=== PATIENT | female | born 1975 | race Caucasian/White ===

== ENCOUNTER 2020-10-11 06:41 | Observation (INO) ==
--- NOTE | 2020-08-20 14:38 | PAT Medication Instructions ---
Medication Instructions Date of Service August 20, 2020 Home Medications acetaminophen [Tylenol Extra Strength] 1,500 mg PO HS cholecalciferol (vitamin D3) [Vitamin D3] 125 mcg PO QAM coQ10 (ubiquinol) 200 mg PO QAM cyanocobalamin (vitamin B-12) 1,000 mcg PO QAM diclofenac sodium 75 mg PO BID ibuprofen [Motrin] 200 mg PO BID metformin 500 mg PO BID metoprolol succinate 25 mg PO QAM montelukast [Singulair] 10 mg PO QAM tiotropium-olodaterol [Stiolto Respimat] 2 puff INHALATION QAM ASK your surgeon for instructions diclofenac sodium 75 mg PO BID ibuprofen [Motrin] 200 mg PO BID STOP taking 2 weeks before surgery (or as soon as possible if surgery is within 2 weeks) coQ10 (ubiquinol) 200 mg PO QAM DO NOT take the morning of surgery cholecalciferol (vitamin D3) [Vitamin D3] 125 mcg PO QAM cyanocobalamin (vitamin B-12) 1,000 mcg PO QAM metformin 500 mg PO BID montelukast [Singulair] 10 mg PO QAM Take morning of surgery With a small sip of water, OTHERWISE NOTHING TO EAT OR DRINK AFTER MIDNIGHT: metoprolol succinate 25 mg PO QAM Take evening before surgery acetaminophen [Tylenol Extra Strength] 1,500 mg PO HS metformin 500 mg PO BID Other Notes If you have any questions please call us at [phone] or [phone] or [phone] or [phone]
--- NOTE | 2020-08-22 14:08 | Anesthesiology Consultation ---
Date of Service August 22, 2020 Assessment & Plan (1) Encounter for pre-operative examination: - COVID screening: Per assessment on 08/22: Travel screen negative, no known COVID-19 positive contacts or current COVID-19 related symptoms. Surgeon arranging preop COVID testing. Awaiting results. - Check test AM DOS Chart Review Chart Review: Acceptable Risk for Surgery and Patient seen in Pre Admission Testing Teaching & Discussion Pre-Anesthesia Teaching/Discussion Notes: Instructed NPO after midnight before surgery,except medications with 15 cc of water. Medication instructions provided according to the PAT guidelines. History Surgery Operation Date: 09/20/20 08:45 Proposed Procedures p Right Total Hip Arthroplasty, Possible Bone Grafting, Autrograft [place] Femoral Head or Acetabulum - Rudy Friedman DO Height/Weight Height: 5 ft 8 in Weight: 95.3 kg Allergies Allergy/AdvReac Type Severity Reaction Status Date / Time No Known Allergies Allergy Verified 08/20/20 11:46 Medications Home Medications Medication Instructions Recorded Confirmed Last Taken acetaminophen 500 mg capsule 1,500 mg PO HS 08/20/20 08/20/20 Unknown cholecalciferol (vitamin D3) 125 125 mcg PO QAM 08/20/20 08/20/20 Unknown mcg (5,000 unit) tablet (Vitamin D3) coQ10 (ubiquinol) 200 mg capsule 200 mg PO QAM 08/20/20 08/20/20 Unknown cyanocobalamin (vitamin B-12) 1,000 mcg PO QAM 08/20/20 08/20/20 Unknown 1,000 mcg capsule diclofenac sodium 75 mg 75 mg PO BID 08/20/20 08/20/20 Unknown tablet,delayed release ibuprofen 100 mg tablet 200 mg PO BID 08/20/20 08/20/20 Unknown metformin 500 mg tablet 500 mg PO BID 08/20/20 08/20/20 Unknown metoprolol succinate 25 mg 25 mg PO QAM 08/20/20 08/20/20 Unknown tablet,extended release 24 hr montelukast 10 mg tablet 10 mg PO QAM 08/20/20 08/20/20 Unknown (Singulair) tiotropium 2.5 mcg-olodaterol 2.5 2 puff INHALATION QAM 08/20/20 08/20/20 Unknown mcg/actuation mist for inhalation (Stiolto Respimat) Past Medical History Medical History Arthritis Hips History of tachycardia Remote palpitations, controlled since starting beta gayla Obesity Per pt, no diabetes or elevated glucose readings in the past > states prescribed Metformin by PCP for weight loss Sleep apnea CPAP (compliant) 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 per pt Exercise / Class Metabolic Activity II 4-5 Yardwork/Stairs/Walk up hill Past Family History Family History Father Family history of diabetes mellitus Mother Family history of diabetes mellitus Past Surgical History Surgical History Goiter s/p needle biopsy History of arthroscopy Right knee ACL History of bilateral breast reduction surgery History of section x2 Past Anesthesia History No Hx of Anesthesia Complications and No Family Hx of Anesthesia Complications History of PONV No Hx of PONV and Hx of Motion Sickness (occasional) Social History Smoking Status: Former smoker Do You Dip or Chew Tobacco: No Smoking End Date: Quit 18 years ago Hx Alcohol Use: Yes Alcohol type: other alcohol intake frequency: a few times a month Hx Substance Use: No Review of Systems Patient denies chest pain, shortness of breath, dyspnea on exertion, fever, chills, cough, wheezing, palpitations. Physical Exam Vital Signs VITALS BP 103/69 P 93 TEMP 98.9 SP02 97%RA RESP 16 PHYSICAL Full cervical extension range of motion. Full TMJ range of motion. TMD 3 finger breaths Mallampati Score 2 Dentition: left lower side missing Lungs: clear throughout to auscultation Cardiac: regular rate and rhythm, no murmurs noted Spine: normal Carotid arteries: negative bruit Extremities: no edema Lab Results Anesthesia Preop Results Results Anesthesia Widget: WBC 6.81 K/uL (4.8-10.8) 08/22/20 Hgb 12.5 g/dL (12.0-16.0) 08/22/20 Hct 36.6 % (37-47) L 08/22/20 Plt 252 K/uL (130-400) 08/22/20 Na 141 mmol/L (136-145) 08/22/20 K 3.8 mmol/L (3.5-5.1) 08/22/20 Cl 109 mmol/L (98-107) H 08/22/20 CO2 29 mmol/L (21-32) 08/22/20 BUN 12 mg/dl (7-18) 08/22/20 Creat 0.67 mg/dl (0.6-1.2) 08/22/20 Glucose Level 94 mg/dl (70-99) 08/22/20 PT 10.7 Seconds (9.0-12.0) 08/22/20 PTT 23.6 Seconds (21.0-31.0) 08/22/20 INR 1.1 (0.9-1.1) 08/22/20 HA1c 5.4 % (4.5-5.6) 08/22/20 Urine Color Yellow 08/22/20 Urine Appearance Cloudy (Clear) A 08/22/20 Urine pH 6.0 (4.5-7.5) 08/22/20 Urine Specific [place] 1.014 (1.000-1.030) 08/22/20 Urine Protein Negative (Negative) 08/22/20 Urine Glucose (UA) Negative (Negative) 08/22/20 Urine Ketones Negative (Negative) 08/22/20 Urine Blood 2+ (Negative) H 08/22/20 Urine Nitrite Negative (Negative) 08/22/20 Urine Bilirubin Negative (Negative) 08/22/20 Urine Urobilinogen Negative (Negative) 08/22/20 Urine Leukocyte Esterase 1+ (Negative) H 08/22/20 Urine WBC (Auto) >30 /hpf (0-5) H 08/22/20 Urine RBC (Auto) 5-10 /hpf (0-4) H 08/22/20 Urine Hyaline Casts (Auto) 1-5 /lpf (0-5) 08/22/20 Urine Epithelial Cells (Auto) >30 /lpf (0-5) H 08/22/20 Urine Bacteria (Auto) 1+ (Negative) H 08/22/20 Blood Type B Positive 08/22/20 Antibody Screen NEGATIVE 08/22/20 Lab Comments: Surgeon's office made aware of abnormal UA. Testing Electrocardiogram Date: 08/22/20 Findings: + NSR @ (90) Chest X-Ray Date: 08/22/20 Findings: + NAD
--- NOTE | 2020-10-10 15:27 | History & Physical Report ---
Date of Service October 10, 2020 Assessment & Plan (1) Osteoarthritis of right hip: Plan: Schedule a right hip total hip arthroplasty, possible autografting acetabular bone cyst, possible femoral head autograft harvest for 10.11.20. All potential risks, benefits, complications, alternatives, and rehab have been discussed with the patient and she wishes to proceed. ASA 81 mg BID x 4 wks post op for DVT prophylaxis. Home health set up for outpatient total hip arthroplasty. History of Present Illness Chief Complaint: right hip pain Primary Care Provider: Luci Colmenares This is a patient with chronic right hip pain that was treated conservatively for hip DJD. 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 She is now being set up for a right GUZMAN. Allergies Allergy/AdvReac Type Severity Reaction Status Date / Time No Known Allergies Allergy Verified 08/20/20 11:46 Home Medications Medication Instructions Recorded Confirmed Type acetaminophen 500 mg capsule 1,500 mg PO HS 08/20/20 08/20/20 History cholecalciferol (vitamin D3) 125 125 mcg PO QAM 08/20/20 08/20/20 History mcg (5,000 unit) tablet (Vitamin D3) coQ10 (ubiquinol) 200 mg capsule 200 mg PO QAM 08/20/20 08/20/20 History cyanocobalamin (vitamin B-12) 1,000 mcg PO QAM 08/20/20 08/20/20 History 1,000 mcg capsule diclofenac sodium 75 mg 75 mg PO BID 08/20/20 08/20/20 History tablet,delayed release ibuprofen 100 mg tablet 200 mg PO BID 08/20/20 08/20/20 History metformin 500 mg tablet 500 mg PO BID 08/20/20 08/20/20 History metoprolol succinate 25 mg 25 mg PO QAM 08/20/20 08/20/20 History tablet,extended release 24 hr montelukast 10 mg tablet 10 mg PO QAM 08/20/20 08/20/20 History (Singulair) tiotropium 2.5 mcg-olodaterol 2.5 2 puff INHALATION QAM 08/20/20 08/20/20 History mcg/actuation mist for inhalation (Stiolto Respimat) Past Med/Surg History Medical History Arthritis Hips History of tachycardia Remote palpitations, controlled since starting beta gayla Obesity Per pt, no diabetes or elevated glucose readings in the past > states prescribed Metformin by PCP for weight loss Sleep apnea CPAP (compliant) 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 per pt Surgical History Goiter s/p needle biopsy History of arthroscopy Right knee ACL History of bilateral breast reduction surgery History of section x2 Family History Father Family history of diabetes mellitus Mother Family history of diabetes mellitus Social History Smoking Status: Former smoker Second Hand Exposure: Yes (SPOUSE SMOKES OUTSIDE); Hx Alcohol Use: Yes Alcohol type: other Hx Substance Use: No Preferred Language: Iranian Communication Ability: Effective Grounds Maintenance Manager Required: No Beliefs That Will Affect Care: None Current Living Situation: Spouse and Family Feels Safe at Home: Yes Assistive Devices: Glasses Physical Exam Constitutional: well developed and well nourished; no acute distress ENMT: external ear and nose normal, oropharynx normal Neck: trachea midline Respiratory: normal respiratory effort, lungs clear to auscultation Cardiovascular: Rate/Rhythm: regular rate and regular rhythm Gastrointestinal (Abdomen): normal bowel sounds, soft, nontender, no hepatosplenomegaly Musculoskeletal: Hip: + limited ROM of hip (right), + joint line tenderness (right groin), + KENYA test positive (right) and + FADIR test positive (right); no skin erythema and no ecchymosis Skin: no rashes, warm and dry Neurologic: normal touch/pain/proprioception Psychiatric: A+Ox3, euthymic affect Speech: normal rate/rhythm/volume of speech Lymphatic: no cervical or axillary lymphadenopathy
[~2020-10-11 06:41] MED LIST: ACETAMINOPHEN 500 MG TAB PO SCH; CeleBREX 200 MG CAP PO SCH; FAMOTIDINE 20 MG TAB PO SCH; GABAPENTIN 900 MG DOSE PO SCH; LR 500ML BOLUS, THEN 15ML/HR IV SCH; METOCLOPRAMIDE HCL 10 MG TABLET PO SCH; ROPIVACAINE 0.5% HCL/PF 150 MG, BUPIVACAINE 0.75% MPF 20 ML, EPINEPHrine 30MG/30ML (OR ... INFIL SCH; ROPIVACAINE 0.5% HCL/PF 150 MG, BUPIVACAINE 0.75% MPF 20 ML, EPINEPHrine 30MG/30ML (OR ... INSTIL SCH; TRANEXAMIC ACID 1,000 MG **IV Intra-op IV SCH; TRANEXAMIC ACID 1,000 MG **IV Pre-op IV SCH; ceFAZolin 2000MG 2,000 MG/15 ML SYR IV SCH; dexAMETHasone 4 MG TAB PO SCH
[2020-10-11] MEDS ORDERED: ORTHO JOINT ANESTHETIC ONE (07:06)
[2020-10-11] MEDS ORDERED: BUPIVACAINE 0.5 % 5 MG/1 ML PF 10ML VIAL ONE (07:18)
[2020-10-11] MEDS ORDERED: GLYCOPYRROLATE 0.2 MG/ML VIAL ONE (07:26)
[2020-10-11] MEDS ORDERED: fentaNYL citrate 100 MCG/2 ML VIAL ONE (07:27)
[2020-10-11] MEDS ORDERED: KETAMINE 50 MG/5 ML SYRINGE ONE (07:27)
[2020-10-11] MEDS ORDERED: MIDAZOLAM HCL 1 MG/ML 2ML VIAL ONE ×2 (07:27)
--- NOTE | 2020-10-11 07:27 | History & Physical Bridge Note ---
Date of Service October 11, 2020 History & Physical Bridge Note I have examined the patient, reviewed the History & Physical and in the interval since the performance of the History & Physical I have noted the following changes of clinical significance: no changes noted
[2020-10-11] MEDS ORDERED: MEPIVACAINE HCL 1.5% 30 ML VIAL ONE (08:40)
[2020-10-11] MEDS ORDERED: LIDOCAINE 2%/EPINEPHRINE 1:200,000 20 ML SDV ONE (08:41)
[2020-10-11] MEDS ORDERED: ePHEDrine sulfate 50 MG/ML SYR ONE (10:33)
[2020-10-11] MEDS ORDERED: KETOROLAC 30 MG/ML VIAL ONE (10:33)
[2020-10-11] MEDS ORDERED: ONDANSETRON INJ 2 MG/ML 2 ML VIAL ONE (10:33)
[2020-10-11] MEDS ORDERED: LIDOCAINE 2% 2 ML VIAL/AMP(20MG/ML) INFIL ONE (10:33)
[2020-10-11] MEDS ORDERED: PHENYLEPHRINE 100MCG/ML 5ML SYR ONE (10:33)
[2020-10-11] MEDS ORDERED: PROPOFOL IV EMULSION 10 MG/ML 20 ML VIAL IV ONE ×3 (10:33→12:12)
[2020-10-11] MEDS ORDERED: PHENYLEPHRINE HCL 10 MG/ML VIAL ONE (10:33)
[2020-10-11] MEDS ORDERED: METOPROLOL TARTRATE 1 MG/ML VIAL IV ONE (11:07)
--- NOTE | 2020-10-11 12:43 | Post Operative Brief Note ---
Immediate Post Op Note v1 Date of Surgery October 11, 2020 Pre & Post Diagnosis Operation Date: 09/20/20 09:05 <No data on this case meets the specified criteria> Operation Date: 10/11/20 09:15 Pre-Op Diagnosis: Right Hip Osteoarthritis, avascular necrosis femoral head, hip dysplasia, right hip pain Post-Op Diagnosis: Right Hip Osteoarthritis, avascular necrosis femoral head, hip dysplasia, right hip pain I identified the patient and participated in the time-out.: Yes Procedure Operation Date: 09/20/20 09:05 <No data on this case meets the specified criteria> Operation Date: 10/11/20 09:15 Actual Procedures p Right press-fit [place] Total Hip Arthroplasty(Right) - Rudy Friedman DO Surgeon Rudy Friedman DO Product Scientist Jason Johnson PA-C and Luca Vazquez PA-C Estimated Blood Loss 100 Findings Consistent with Post-Op Diagnosis Specimens Bone and tissue right hip Drains Hemovac Drain Anesthesia Type Spinal MAC Complications none Disposition Accompanied Patient To Recovery: No Overlapping Procedure I was present for: the critical portions of procedure. I was immediately available: during the entire case.
--- NOTE | 2020-10-11 13:21 | Anesthesia Procedure Note ---
Date of Service October 11, 2020 Anesthesia Post Epidural Note Vital Signs Vital Signs: Temp Pulse Resp BP Pulse Ox 36.8 C 113 H 22 95/58 L 97 10/11/20 12:45 10/11/20 13:15 10/11/20 13:15 10/11/20 13:15 10/11/20 13:15 Pain Intensity Right Hip: Pain Intensity: 10 Notes Mental Status: alert / awake / arousable Nausea / Vomiting: adequately controlled Pain: adequately controlled Airway Patency, RR, SpO2: stable & adequate BP & HR: stable & adequate Hydration State: stable & adequate Neuraxial Anesthesia: was administered and sensory block is resolving Anesthetic Complications: no major complications apparent Epidural: Removed without complications and With tip intact
--- NOTE | 2020-10-11 13:22 | Anesthesiology Progress Note ---
Date of Service October 11, 2020 Anesthesia Post Procedure Vital Signs Vital Signs: Temp Pulse Pulse Resp BP BP Pulse Ox 10/11/20 13:15 113 H 22 95/58 L 97 10/11/20 13:05 114 H 18 99/64 L 99 10/11/20 12:55 118 H 13 98/60 L 98 10/11/20 12:45 36.8 C 122 H 13 102/72 96 10/11/20 07:33 36.8 C 91 H 18 127/72 99 Pain Intensity Right Hip: Pain Intensity: 10 Transfer of Care Handoff Completed per policy Notes Mental Status: alert / awake / arousable Patient Amnestic to Procedure: Yes Nausea / Vomiting: adequately controlled Pain: adequately controlled Airway Patency, RR, SpO2: stable & adequate BP & HR: stable & adequate Hydration State: stable & adequate Neuraxial Anesthesia: was administered and sensory block is resolving Anesthetic Complications: no major complications apparent
[2020-10-11] MEDS ORDERED: oxyCODONE HCL IR 5 MG TAB (IMMEDIATE RELEASE) PO STA (13:49)
--- NOTE | 2020-10-11 14:00 | XRay Report ---
XR hip RT min 2V CLINICAL HISTORY: Postop total hip COMPARISON: None. DISCUSSION: Prosthetic right hip joint is seen. Evaluation of osseous structures is limited due to patient's body habitus. Surgical drainage and mild subcutaneous emphysema is seen. IMPRESSION: Postoperative changes as detailed above. ACT 112: Negative or not required by law. The above report was generated using voice recognition software. It may contain grammatical, syntax o r spelling errors. Electronically signed by: Cara Gregory DO 10/11/2020 1:58 PM
[2020-10-11] MEDS ORDERED: METOCLOPRAMIDE HCL INJ 5 MG/ML 2 ML VIAL IV PRN ×2 (14:30→16:31)
[2020-10-11] MEDS ORDERED: ONDANSETRON INJ 2 MG/ML 2 ML VIAL IV PRN ×2 (14:30→16:31)
[2020-10-11] MEDS ORDERED: KETOROLAC TROMETHAMINE 15 MG/ML VIAL IV PRN (14:30)
[2020-10-11] MEDS ORDERED: NALOXONE HCL 0.4 MG/1 ML VIAL/CARP IV PRN ×2 (14:30→16:31)
[2020-10-11] MEDS ORDERED: HYDROmorphone INJ 0.5 MG/0.5 ML SYR IV PRN ×2 (14:30→16:31)
--- NOTE | 2020-10-11 15:04 | Operative Report (OR) ---
DATE OF PROCEDURE: 10/11/2020. PREOPERATIVE DIAGNOSES: 1. Right hip osteoarthritis. 2. Avascular necrosis of the femoral head. 3. Hip dysplasia. 4. Right hip pain. POSTOPERATIVE DIAGNOSES: 1. Right hip osteoarthritis. 2. Avascular necrosis of the femoral head. 3. Hip dysplasia. 4. Right hip pain. PROCEDURE: Right press-fit [place] total hip arthroplasty using a Trident titanium 60 mm shell with a Trident X3 10-degree raised polyethylene liner 36 mm, Osteolock 3.5 mm hex 6.5 mm diameter, 35 mm in length and a second Osteolock screw 3.5 mm hex head, 6.5 mm diameter and 20 mm length. Accolade II, 132- degree neck angle with a size 6 V40 taper and a Biolox Delta ceramic V40 femoral head, 36 mm diameter, +5 mm neck length. SURGEON: Rudy Friedman DO. LEARNING SOLUTIONS SPECIALIST: Jason Johnson PA-C and Luca Vazquez PA-C who was present for patient positioning, sterile prep and drape, management of retractors and instruments. Both were present through the critical portions of the case including wound closure, application of sterile dressing and transport of the patient to recovery. ANESTHESIA: Spinal MAC, local. SPECIMENS: Bone and tissue, right hip. DRAINS: Hemovac x2 deep and a Prevena superficial wound drain. COMPLICATIONS: None. BLOOD LOSS: 100 mL. PERTINENT HISTORY: This is a 44-year-old woman who has had chronic progressive and worsening right hip pain, which accelerated over the last 6-9 months. She attempted and failed conservative management including observation, rest, modification of activities, modification of shoe wear, anti-inflammatories, steroid injections, physician-directed home exercises and physical therapy including use of an assistive device. Radiographs and CT scan demonstrate severe degenerative arthritis of the right hip with dysplasia of the hip and avascular necrosis of the femoral head. The patient was then scheduled for surgery as indicated. All potential risks, benefits, alternatives, complications, alternatives, rehab potential for incomplete relief of symptoms, need for further surgery, DVT, PE, since pain, swelling, scarring, weakness, neurovascular injury, wound complications, hardware failure, nonunion, malunion, bone fracture were discussed with the patient. The patient decided to proceed with the procedure as indicated. DESCRIPTION OF PROCEDURE: The patient was taken to the Operating Suite and placed supine on the Operating Room table after identification of the consent and identification of the proper operative site the patient was sedated. The patient had previously received a spinal epidural anesthetic. The patient was then placed in the left lateral decubitus position with the affected side up and Stulberg positioning device then used to maintain lateral position of the patient. All bony prominences were properly padded and protected. Axillary roll was placed as standard and the leg lengths were determined to be essentially equal and then the right hip was then sterilely prepped and draped in the usual fashion. 10-blade scalpel incision was made laterally over the greater trochanter. The incision was deepened through the subcutaneous tissue and meticulous hemostasis with electrocautery. Further deepening of the wound through the layer of the fascia was performed with electrocautery and iliotibial band was then incised with electrocautery. Next, Charnley retractor was placed bother anteriorly and posteriorly at the level of the gluteus tendon. Next, electrocautery was used to make an incision in the vastus lateralis and then sweep was made toward the anterior aspect of the patient along the course of the femoral neck and head. Abductor split was then completed. The gluteus minimus and capsule were then incised and then soft tissue was dissected anteriorly. Next as the soft tissue was dissected anteriorly the lesser trochanter was clearly identified and hip was dislocated with relative ease. Hypertrophic osteophytes were noted circumferentially. The hip joint was noted to be noticeably tight. Next the sagittal saw was used to resect the proximal portion of the femoral neck and head approximately one fingerbreadth proximal to the lesser trochanter. Head was then removed and next the labrum was excised from the acetabulum with a 27 blade scalpel and long forceps. Next the wound was irrigated with pulsatile lavage and the pulvinar was then excised from the acetabulum. Appropriate retractors were placed anteriorly superiorly and posteriorly. Next initial acetabular reamer was placed 44 mm medialized to the medial wall and then sequential reaming was performed to size 56 mm. Trial cage was then placed and noted to be stable with excellent fit. Next the wound was irrigated with pulsatile lavage with bacitracin additive and [employer] Trident titanium 60 mm shell PSL cup was impacted and then Osteolock 3.5 mm hex 6.5 mm diameter, 35 mm in length and a second Osteolock screw 3.5 mm hex head, 6.5 mm diameter and 20 mm length screws were used to stabilize the acetabular shell. Next Trident X3 10-degree raised polyethylene liner 36 mm was impacted into the shell. Lap sponge was placed over to protect it. Next, attention was turned toward the proximal femur. Box osteotome was used to resect proximal portion of bone followed by first pass small reamer. Next, sequential broaching was performed up to size 6 and the 6 trial was placed followed by +5mm X 36 mm trial head. Next, it was reduced and had excellent fit and feel with minimal shuck and excellent stability in all planes and range of motion. Leg lengths were restored and next all trial implants were removed. The wound was copiously irrigated with pulsatile lavage and size 6 Accolade II, 132-degree neck angle with a V40 taper final stem was impacted. Next, Biolox Delta ceramic V40 femoral head, 36 mm diameter, +5 mm neck length was impacted. The construct was reduced. Range of motion was performed and noted to be completely stable with excellent range of motion, improved to greater degree than prior to surgery. Two 10 [place] single Hemovac drains were placed exiting anterolaterally. Ortho mix was injected in and around the joint capsule. The incision was irrigated with dilute sterile Betadine solution for 3 minutes. Next pulsatile lavage was used to cleanse all bone and soft tissues as well as the implants. Next a #5 FiberWire suture was used to close the capsule and gluteus minimum via two small bone tunnels made with 2.4 mm drill bit in the greater trochanter. After FiberWire closure was completed and noted to be stable then 10 [place] drains were placed followed by closure of the vastus lateralis and the gluteus medius. This was closed with #1 Vicryl sutures. Next, the iliotibial band was closed using interrupted [id number] #1 Vicryl sutures. Next, final irrigation was performed with pulsatile lavage and dermis was closed using buried interrupted 2-0 Vicryl suture. The skin was closed with a zip line closure system. Sterile compressive dressing/Kristan drain was applied. The patient was then placed supine and taken to recovery in stable condition. Job ID: [id number] [facility]
[2020-10-11] MEDS ORDERED: MAGNESIUM HYDROXIDE SUSP 30 ML UDC PO PRN (16:31)
[2020-10-11] MEDS ORDERED: bisacodyL 10 MG SUPP PR PRN (16:31)
[2020-10-11] MEDS ORDERED: ALUMINUM/MAGNESIUM SUSP 30 ML UDC PO PRN (16:31)
[2020-10-11] MEDS ORDERED: PHARMACY GLYCEMIC MGMT CONSULT PRN (16:31)
[2020-10-11] MEDS ORDERED: diphenhydrAMINE Capsule 25 MG CAP PO PRN (16:31)
[2020-10-11] MEDS ORDERED: SODIUM CHLORIDE 0.9% 1000ML 1,000 ML IV SCH (17:00)
[2020-10-11] MEDS: SODIUM CHLORIDE 0.9% 1000ML 1,000 ML IV SCH ×2 (19:16→22:45)
--- NOTE | 2020-10-11 19:27 | Pharmacy Report ---
Pharmacy Glycemic Short Note 2 - Date of Service October 11, 2020 - Glycemic Short BSG Results (Last 24 hours): 10/11/20 19:11 POC Glucose 155 H OUTPATIENT ANTIDIABETIC REGIMEN: * Metformin * HbA1c 5.4% on 08/22/20 ASSESSMENT: * 44 yo F with good outpatient control of T2DM on metformin alone admitted 10/11 after GUZMAN and dexamethasone po preop * Post-op BSG reasonably well controlled at 155 mg/dL, although prefer BSG's <150 mg/dL post op * Will give very low dose Lantus x1 today - likely will not need to continue * Will initiate weight-based moderate stress Novolog, but slightly tighter CHO ratio due to steroids today PLAN FOR INPATIENT GLYCEMIC CONTROL: * Hold outpatient oral diabetes medications * Basal insulin * Lantus 15 units SQ x1 now * Bolus insulin * NovoLog per scale ACHS or Q6hrs while NPO * Goal Range: Low 110 mg/dL - High 140 mg/dL * Correction Factor: 25 mg/dL/unit * Nutritional / Prandial insulin per carb ratio of 1 unit per 7 grams CHO consumed PLAN FOR DISCHARGE: * Continue metformin, as long as no contraindications at discharge
[2020-10-11] MEDS ORDERED: LANTUS PER UNIT CHARGE SQ ONE (19:30)
[2020-10-11] MEDS: INSULIN ASPART 100 UNITS/ML 3 ML PEN SC SCH (19:49)
[2020-10-11] MEDS: DOCUSATE SODIUM 100 MG CAP PO SCH (19:50)
[2020-10-11] MEDS: ASPIRIN 81 MG ECTAB PO SCH (19:51)
[2020-10-11] MEDS ORDERED: SENNA 8.6 MG TAB PO SCH (21:00)
[2020-10-11] MEDS: ceFAZolin 2000MG 2,000 MG/15 ML SYR IV SCH (21:48)
[2020-10-11] MEDS: ACETAMINOPHEN 500 MG TAB PO SCH (21:48)
[2020-10-11] MEDS ORDERED: TRANEXAMIC ACID / 0.7% NACL 1,000 MG/100 ML BAG IV SCH (22:45)
[2020-10-12] MEDS: ACETAMINOPHEN 500 MG TAB PO SCH ×2 (05:38→14:02)
[2020-10-12] MEDS: oxyCODONE HCL IR 5 MG TAB (IMMEDIATE RELEASE) PO PRN ×2 (05:39→11:27)
[2020-10-12] MEDS: ceFAZolin 2000MG 2,000 MG/15 ML SYR IV SCH (05:45)
[2020-10-12 06:33] LABS: Hematocrit (blood only) 26.2 % (37-47); Hemoglobin 8.9 g/dL (12.0-16.0); Immature Granulocytes # (auto) 0.04 K/uL (0.00-0.02); Immature Granulocytes % (auto) 0.3 %; Lymphocytes # (auto) 0.91 K/uL (1.2-3.4); Lymphocytes % (auto) 6.1 %; Mean Corpuscular Hemoglobin 30.9 pg (25-34); Mean Platelet Volume 9.7 fL (7.4-10.4); Monocytes # (auto) 1.16 K/uL (0.11-0.59); Monocytes % (auto) 7.8 %; Neutrophils # (auto) 12.82 K/uL (1.4-6.5); Neutrophils % (auto) 85.8 %; Platelet Count 214 K/uL (130-400); RDW Coefficient of Variation 12.7 % (11.5-14.5); RDW Standard Deviation 42.2 fL (36.4-46.3); Red Blood Count 2.88 M/uL (4.2-5.4); White Blood Count 14.93 K/uL (4.8-10.8)
[2020-10-12 07:04] LABS: BUN Creatinine Ratio 19.6 (10-20); Calcium 8.5 mg/dl (8.5-10.1); Creatinine Clr Calc Pharmacy 94.4 ml/min; Est GFR (African American) 88.4 ml/min; Est GFR (Non-African American) 76.3 ml/min; Potassium 4.2 mmol/L (3.5-5.1)
[2020-10-12] MEDS: ASPIRIN 81 MG ECTAB PO SCH (08:22)
[2020-10-12] MEDS: DOCUSATE SODIUM 100 MG CAP PO SCH (08:22)
[2020-10-12] MEDS ORDERED: MULTIVITAMIN TAB PO SCH (09:00)
[2020-10-12] MEDS ORDERED: CeleBREX 200 MG CAP PO SCH (09:00)
[2020-10-12] MEDS: INSULIN ASPART 100 UNITS/ML 3 ML PEN SC SCH ×2 (09:49→14:02)
--- NOTE | 2020-10-12 10:33 | Orthopedic Progress Note ---
Date of Service October 12, 2020 Assessment & Plan (1) Osteoarthritis of right hip: Plan: s/p right GUZMAN Hgb 8.9 Asymptomatic HR elevated 92 and bp running 96/58, she will resume Metoprolol and monitor symptoms. If dizzy/lightheaded will DC metoprolol. She has an appt with her PCP on wednesday and will recheck Hgb Will DC patient today to home with HH (scheduled to meet her at home when discharged) Spoke with Lilliana Geronimo PA-C [facility] regarding patient and will DC based on recommendations above. Admission and Anticipated Discharge Date Admission Date: October 11, 2020 Subjective POD #1 resting comfortably in bed. Beginning physical therapy. Denies CP, SOB, dizziness, headaches, lightheadedness. Physical Exam Physical Exam: Toes mobile, NVI. Calves soft, non tender. Dressing in place. Hemovac and provena in place Results & Data ([facility]) Vital Signs (Past 12 Hours) Vital Signs Temp Pulse Pulse Resp BP Pulse Ox 10/12/20 07:06 36.7 C 92 H 16 96/58 L 98 10/12/20 03:17 37.1 C 99 H 16 92/56 L 97 10/12/20 03:00 37.1 C 99 H 16 92/56 L 97 10/11/20 23:01 36.9 C 98 H 16 90/55 L 96
[2020-10-12] MEDS ORDERED: KETOROLAC TROMETHAMINE 15 MG/ML VIAL IV ONE (14:18)
--- NOTE | 2020-10-15 11:31 | Discharge Summary ---
Date of Service October 15, 2020 Admission HPI Per Admitting Provider This is a patient with chronic right hip pain that was treated conservatively for hip DJD. 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 She is now being set up for a right GUZMAN. Admission Exam Per Admitting Provider Physical Exam Constitutional: well developed and well nourished; no acute distress ENMT: external ear and nose normal, oropharynx normal Neck: trachea midline Respiratory: normal respiratory effort, lungs clear to auscultation Cardiovascular: Rate/Rhythm: regular rate and regular rhythm Gastrointestinal (Abdomen): normal bowel sounds, soft, nontender, no hepatosplenomegaly Musculoskeletal: Hip: + limited ROM of hip (right), + joint line tenderness (right groin), + KENYA test positive (right) and + FADIR test positive (right); no skin erythema and no ecchymosis Skin: no rashes, warm and dry Neurologic: normal touch/pain/proprioception Psychiatric: A+Ox3, euthymic affect Speech: normal rate/rhythm/volume of speech Lymphatic: no cervical or axillary lymphadenopathy Principal Diagnosis Osteoarthritis right hip Discharge Data Allergies Allergy/AdvReac Type Severity Reaction Status Date / Time No Known Allergies Allergy Verified 10/11/20 07:28 Procedures Performed Operation Date: 09/20/20 09:05 <No data on this case meets the specified criteria> Operation Date: 10/11/20 09:15 Actual Procedures p Right Total Hip Arthroplasty(Right) - Rudy Friedman DO Hospital Course (1) Osteoarthritis of right hip: Date of Service October 12, 2020 Assessment & Plan (1) Osteoarthritis of right hip: Plan: s/p right GUZMAN Hgb 8.9 Asymptomatic HR elevated 92 and bp running 96/58, she will resume Metoprolol and monitor symptoms. If dizzy/lightheaded will DC metoprolol. She has an appt with her PCP on wednesday and will recheck Hgb Will DC patient today to home with HH (scheduled to meet her at home when discharged) Spoke with Lilliana Geronimo PA-C [facility] regarding patient and will DC based on recommendations above. Admission and Anticipated Discharge Date Admission Date: October 11, 2020 Subjective POD #1 resting comfortably in bed. Beginning physical therapy. Denies CP, SOB, dizziness, headaches, lightheadedness. Physical Exam Physical Exam: Toes mobile, NVI. Calves soft, non tender. Dressing in place. Hemovac and provena in place Results & Data ([facility]) Vital Signs (Past 12 Hours) Vital Signs Temp Pulse Pulse Resp BP Pulse Ox 10/12/20 07:06 36.7 C 92 H 16 96/58 L 98 10/12/20 03:17 37.1 C 99 H 16 92/56 L 97 10/12/20 03:00 37.1 C 99 H 16 92/56 L 97 10/11/20 23:01 36.9 C 98 H 16 90/55 L 96 Total Time Total Time Spent Total Time Spent (In Minutes): 5 Discharge Plan Discharge Items Patient Disposition: Home - Home Health Services Reason For Visit: Right Hip Osteoarthritis, Avascaular Necrosis Discharge Diagnosis: Right hip osteoarthritis, avascular necrosis femoral head Activity: Per Instructions section Non-emergency contact: Surgeon Call non-emergency contact if: your pain is not controlled, your pain is worsening and your temperature is above 101 Follow-up/Referrals: [facility] [Outside] (as per surgeon's office) Rudy Friedman DO [Surgeon] - PCP,NO [Primary Care Provider] - Diet: Regular Addtl Attending Provider Instructions: ACTIVITY RECOMMENDATIONS: SELF CARE INSTRUCTIONS AFTER TOTAL HIP REPLACEMENT Until the incision and soft tissues around your hip have healed, there is a possibility that the hip prosthesis could dislocate. A. Observe the following precautions to prevent dislocation: 1. Don't bend your hip greater than 90 degrees. 2. Avoid crossing your legs or ankles while standing or lying. 3. Sit with your feet placed 6 inches apart. 4. When sitting, keep your knees below your hips. Sit on a firm surface, avoid deep, soft chairs and couches. Use an elevated toilet seat in the bathroom. 5. Don't bend over at the waist. Use a long handled shoehorn and a sock aid to help you put on your shoes and socks. A cable worker helper can help you pickle solution maker objects that are too high or too low to reach. 6. Keep car riding to a minimum for at least one month after surgery. B. Your balance may be shaky for a while. Use crutches or a walker until directed by your doctor. C. Use hand rails when walking on stairs. D. Wear low heeled shoes with non-slip soles. E. Be sure that your floors are free of things that could trip you - throw rugs, electrical cords, small objects. Avoid wet and waxed floors, especially with crutches and canes. F. Try to walk several times a day with rest periods between. G. Continue with all the exercises taught to you in the hospital. Again, make walking a part of your daily routine. H. It is okay to shower if minimal to no drainage from incision. No baths. Do not soak wound. I. Physical Therapy as instructed by your Physician. J. Prevena dressing: You have a Prevena dressing on your surgical wound. It will remain in place for 7 days from surgery. You will be provided with a booklet with the do's and don'ts with the dressing in place. After 7 days, the dressing may be removed. If there is drainage from the surgical incision, you may cover the wound with dry dressings K. You have a Zipline closure system over your incision. It will remain in place for 14 days after your surgery. If you have a Silverlon dressing or a large bandaid-like silver dressing over your surgical incision, make sure the Zipline under the dressing remains in place after its removal. The "Shield" may be removed when the Prevena is removed. L. The Hemovac will remain in place for at least 24 hours. If the drainage is less than 100 cc at 1200 on 10/12/2020, the Hemovac may be removed. Otherwise, the Hemovac should be removed at 1200 on 10/13/2020. SPECIAL CARE INSTRUCTIONS: VERY IMPORTANT TO READ AND REVIEW A. You may still be at risk for phlebitis and blood clots. 1. Wear surgical stockings (JOSSY hose) for one month, 20 hours daily, after surgery to improve circulation and reduce swelling. 2. Take Aspirin (blood thinning medications), as directed by your doctor. 3. Have a pro-time (blood test) drawn according to your doctor's instructions. B. We encourage and will assist you in choosing a home-health agency of your choice. Home health nurses and therapists will monitor your temperature, wound healing and progress in exercise and walking. Home health nurses may also draw the blood for the pro-time test. They may instruct you in decreasing or increasing the amount of Coumadin you take. C. You must take antibiotics before having dental work, bladder, bowel and other surgery. Your doctor will provide you with a permanent card to carry describing precautions. D. Call [facility] if you have a temperature of 101 or greater, redness or swelling around the incision, cloudy drainage from incisi on, or sudden increase in pain in your hip, not relieved by your regular pain medication. E. Please call the office at if you have any concerns or questions about your operation or recovery. FOLLOW UP VISIT: If appointment is not already scheduled: Please call [facility] to make a follow-up appointment for 2 weeks after your surgery at . Pending Studies at Discharge: No Stand-Alone Forms: Anesthesia/Sedation, Adult, [facility], Opioid Pain Management Medications and DC Order Prescriptions: New aspirin 81 mg tablet,delayed release (DR/EC) 81 mg PO BID Qty: 60 RF: 0 oxycodone 5 mg capsule 5 mg PO Q4H PRN (Reason: pain) Qty: 20 RF: 0 acetaminophen [Tylenol Extra Strength] 500 mg tablet 1,000 mg PO Q8H Qty: 100 RF: 0 celecoxib [Celebrex] 200 mg capsule 200 mg PO BID Qty: 60 RF: 0 ferrous sulfate 325 mg (65 mg iron) tablet 325 mg PO BID Qty: 30 RF: 0 Continued metformin 500 mg Tablet 500 mg PO BID RF: 0 montelukast [Singulair] 10 mg Tablet 10 mg PO QAM RF: 0 metoprolol succinate 25 mg Tablet Extended Release 24 Hr 25 mg PO QAM RF: 0 cholecalciferol (vitamin D3) [Vitamin D3] 125 mcg (5,000 unit) Tablet 125 mcg PO QAM RF: 0 coQ10 (ubiquinol) 200 mg Capsule 200 mg PO QAM RF: 0 Stiolto Respimat 2.5-2.5 mcg/actuation Mist 2 puff INHALATION QAM RF: 0 cyanocobalamin (vitamin B-12) 1,000 mcg Capsule 1,000 mcg PO QAM RF: 0 Discontinued diclofenac sodium 75 mg Tablet,Delayed Release (Dr/Ec) 75 mg PO BID RF: 0 acetaminophen [Tylenol Extra Strength] 500 mg Capsule 1,500 mg PO HS RF: 0 ibuprofen [Motrin] 100 mg Tablet 200 mg PO BID RF: 0 Discharge Orders: Discharge Order (Routine); Ordered 10/11/20 Ordered By: Luca Melvin/Other Patient Handouts: DVT Post Op Prevention, Preventing Deep Vein Thrombosis Admission Data Admit Date/Time: 10/11/20 16:31 Attending Provider: Rudy Friedman Admit Provider: Luca Vazquez Primary Care Provider: PCP,NO Other Interventions: Discharge Summary Assessment (RN) Last Done: 10/12/20 12:01
== END 2020-10-12 14:53 | disposition home health service (06) ==
LOC: ASU 06:41 → 3N 06:41